=== PATIENT | female | born 1960 | race Caucasian/White ===

== ENCOUNTER → 2017-01-24 | Day surgery (SDC) | payer OTHER ==
[~2017-01-24] MED LIST: BACITRACIN IM FOR SOLN 50,000 UNIT VIAL ONE; BUPIVACAINE/EPINEPHRINE 0.25% PF 10 ML VIAL ONE; LACTATED RINGER'S 1000 ML INJ 1,000 ML ONE; LEVO75TA3 PO; MIDAZOLAM HCL 5 MG/ML VIAL (1 ML) ONE; ONDANSETRON HCL 4 MG/2 ML VIAL IV PUSH ONE; PROPOFOL 200 MG/20 ML AMP IV ONE; PROT40TA PO; SODIUM CHLORIDE 0.9% INJ 10 ML ONE; ceFAZolin INJ 1,000 MG VIAL ONE
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
== END | disposition home or self-care (01) ==
LOC: ESDC 06:48
PROVIDERS: ATTEND Orthopaedic Surgery Sports Medicine
DX: M75.121 Complete rotator cuff tear or rupture of right shoulder, not specified as traumatic (principal); M19.011 Primary osteoarthritis, right shoulder
CPT/HCPCS: 00450; 01630; 01991; 23120; 23420; 64417; C1713; J0690; J2250; J2405; J7120

== ENCOUNTER → 2017-07-06 | Outpatient (CLI) | payer OTHER ==
[~2017-07-06] MED LIST changes: -BACITRACIN IM FOR SOLN 50,000 UNIT VIAL ONE; -BUPIVACAINE/EPINEPHRINE 0.25% PF 10 ML VIAL ONE; -LACTATED RINGER'S 1000 ML INJ 1,000 ML ONE; -MIDAZOLAM HCL 5 MG/ML VIAL (1 ML) ONE; -ONDANSETRON HCL 4 MG/2 ML VIAL IV PUSH ONE; -PROPOFOL 200 MG/20 ML AMP IV ONE; -SODIUM CHLORIDE 0.9% INJ 10 ML ONE; -ceFAZolin INJ 1,000 MG VIAL ONE
[2017-07-06 09:34] LABS: AUTOMATED NEUTROPHIL # 2.9 TH/MM3 (1.8-7.7); BASOPHIL # 0.1 TH/MM3 (0-0.2); BASOPHIL % 0.8 % (0.0-2.0); EOSINOPHIL # 0.1 TH/MM3 (0-0.4); EOSINOPHIL % 2.2 % (0.0-4.0); HEMATOCRIT 41.4 % (35.0-46.0); HEMO FLAGS DIFF FINAL; LYMPH % 45.7 % (9.0-44.0); MEAN CELL VOLUME 90.1 FL (80.0-100.0); MEAN CORPUSCULAR HEMOGLOBIN 30.3 PG (27.0-34.0); MEAN CORPUSCULAR HGB CONC 33.6 % (32.0-36.0); MONO % 7.1 % (0.0-8.0); NEUT % 44.2 % (16.0-70.0); PLATELET COUNT 242 TH/MM3 (150-450); WHITE BLOOD COUNT 6.6 TH/MM3 (4.0-11.0)
[2017-07-06 09:47] LABS: BLOOD, URINE NEG (NEG); GLUCOSE,URINE NEG (NEG); KETONE, URINE NEG (NEG); MUCUS URINE FEW /lpf (OCC); NITRITE,URINE NEG (NEG); PH, URINE 5.5 (5.0-8.5); SQUAMOUS EPITHELIAL CELL URINE 7 /hpf (0-5); URINE COLOR YELLOW (YELLW/STRAW)
[2017-07-06 10:18] LABS: ANION GAP 9 MEQ/L (5-15); AST (GOT) 29 U/L (15-37); BICARBONATE 25.1 MEQ/L (21.0-32.0); BLOOD UREA NITROGEN 16 MG/DL (7-18); CHLORIDE 108 MEQ/L (98-107); GLOMERULAR FILTRATION RATE 61 ML/MIN (>89); GLUCOSE,FASTING 103 MG/DL (74-99); POTASSIUM 4.1 MEQ/L (3.5-5.1); SODIUM (NA) 142 MEQ/L (136-145)
[2017-07-06 10:29] LABS: ALKALINE PHOSPHATASE 73 U/L (45-117); ALT (GPT) 38 U/L (10-53); TOTAL BILIRUBIN ADULT 0.4 MG/DL (0.2-1.0)
== END ==
LOC: CLAB 08:53
PROVIDERS: ATTEND Family Medicine
DX: Z00.00 Encounter for general adult medical examination without abnormal findings (principal)
CPT/HCPCS: 36415; 80053; 81001; 84443; 85025

== ENCOUNTER → 2017-09-29 | Outpatient (CLI) | payer OTHER ==
[2017-09-29 12:33] LABS: AUTOMATED NEUTROPHIL # 3.7 TH/MM3 (1.8-7.7); BASOPHIL % 0.5 % (0.0-2.0); EOSINOPHIL # 0.1 TH/MM3 (0-0.4); EOSINOPHIL % 1.8 % (0.0-4.0); HEMATOCRIT 44.3 % (35.0-46.0); HEMOGLOBIN 14.9 GM/DL (11.6-15.3); LYMPHOCYTE # 3.3 TH/MM3 (1.0-4.8); MEAN CELL VOLUME 89.7 FL (80.0-100.0); MEAN CORPUSCULAR HEMOGLOBIN 30.1 PG (27.0-34.0); MEAN CORPUSCULAR HGB CONC 33.6 % (32.0-36.0); MEAN PLATELET VOLUME 7.3 FL (7.0-11.0); MONO % 6.6 % (0.0-8.0); MONOCYTE # 0.5 TH/MM3 (0-0.9); NEUT % 48.1 % (16.0-70.0); PLATELET COUNT 287 TH/MM3 (150-450); RED BLOOD COUNT 4.94 MIL/MM3 (4.00-5.30); RED CELL DISTRIBUTION WIDTH 13.6 % (11.6-17.2); WHITE BLOOD COUNT 7.7 TH/MM3 (4.0-11.0)
[2017-09-29 12:37] LABS: BACTERIA, URINE OCC /hpf; BILIRUBIN, URINE NEG (NEG); BLOOD, URINE NEG (NEG); GLUCOSE,URINE NEG (NEG); HYALINE CAST, URINE 1 /lpf (RARE); KETONE, URINE NEG (NEG); MUCUS URINE MOD /lpf (OCC); NITRITE,URINE NEG (NEG); PH, URINE 5.5 (5.0-8.5); SQUAMOUS EPITHELIAL CELL URINE 3 /hpf (0-5); URINE COLOR YELLOW (YELLW/STRAW); URINE LEUKOCYTE ESTERASE NEG (NEG)
[2017-09-29 12:59] LABS: ALBUMIN 3.8 GM/DL (3.4-5.0); AST (GOT) 42 U/L (15-37); BICARBONATE 26.3 MEQ/L (21.0-32.0); BLOOD UREA NITROGEN 13 MG/DL (7-18); CALCIUM 8.9 MG/DL (8.5-10.1); CHLORIDE 105 MEQ/L (98-107); CREATININE 0.89 MG/DL (0.50-1.00); GLOMERULAR FILTRATION RATE 65 ML/MIN (>89); GLUCOSE,FASTING 100 MG/DL (74-99); SODIUM (NA) 140 MEQ/L (136-145)
[2017-09-29 13:01] LABS: ALT (GPT) 45 U/L (10-53); CHOLESTEROL 200 MG/DL (120-200)
[2017-09-29 13:11] LABS: ALKALINE PHOSPHATASE 83 U/L (45-117); CHOLESTEROL/ HDL RATIO 4.55 RATIO; HDL CHOLESTEROL 43.9 MG/DL (40.0-60.0); LDL CHOLESTEROL 134 MG/DL (0-99); TOTAL BILIRUBIN ADULT 0.6 MG/DL (0.2-1.0); TOTAL PROTEIN 7.7 GM/DL (6.4-8.2); TRIGLYCERIDES 111 MG/DL (42-150)
== END ==
LOC: CLAB 12:02
PROVIDERS: ATTEND Family Medicine
DX: K21.9 Gastro-esophageal reflux disease without esophagitis (principal); Z12.11 Encounter for screening for malignant neoplasm of colon
CPT/HCPCS: 36415; 80053; 80061; 81001; 84443; 85025

== ENCOUNTER 2018-04-12 14:28 | Inpatient (IN) ==
[2018-04-12] MEDS ORDERED: Temazepam 15 MG Capsule PO PRN (22:35)
[2018-04-12] MEDS: Sod Chloride 0.9% Inj 1,000 ML IV.CONT SCH (23:05)
[2018-04-13] MEDS: Morphine Inj 4 MG/ML Vial IV.PUSH PRN ×2 (02:35→10:42)
[2018-04-13 06:39] LABS: Potassium 3.8 meq/L (3.5-5.1)
[2018-04-13 06:41] LABS: Baso # (Auto) 0.3 th/mm3 (0.0-0.2); Baso % (Auto) 2.2 % (0.0-2.0); Eos # (Auto) 0.3 th/mm3 (0.0-0.4); Eos % (Auto) 1.8 % (0.0-4.0); Hematocrit 41.1 % (35.0-46.0); Hemoglobin 14.1 gm/dL (11.6-15.3); Lymph # (Auto) 2.8 th/mm3 (1.0-4.8); Lymph % (Auto) 20.3 % (9.0-44.0); Mean Corpuscular HGB Conc 34.2 % (32.0-36.0); Mean Corpuscular Hemoglobin 30.7 pg (27.0-34.0); Mean Corpuscular Volume 89.6 fL (80.0-100.0); Mean Platelet Volume 8.5 fL (7.0-11.0); Mono # (Auto) 0.7 th/mm3 (0.0-0.9); Mono % (Auto) 5.2 % (0.0-8.0); Neut # (Auto) 9.8 th/mm3 (1.8-7.7); Neut % (Auto) 70.5 % (16.0-70.0); Platelet Count 235 th/mm3 (150-450); Red Blood Count 4.58 mil/mm3 (4.00-5.30); Red Cell Distribution Width 13.7 % (11.6-17.2); White Blood Count 13.9 th/mm3 (4.0-11.0)
[2018-04-13 06:42] LABS: Carbon Dioxide 25.8 meq/L (21.0-32.0)
[2018-04-13] MEDS: Sod Chloride 0.9% Inj 1,000 ML IV.CONT SCH ×5 (07:05→22:39)
--- NOTE | 2018-04-13 09:22 | P.HP ---
History of Present Illness Primary Care Physician: Abel Avila MD History of Present Illness: 57-year-old female with history of hypothyroid, GERD, diverticulitis presents with pancreatitis and associated abdominal pain. This all began 25 days ago when she developed a nonproductive cough. Since that time she has been on a collection of medications including 1 week of azithromycin, 2 weeks of ciprofloxacin, steroid taper, codeine, Sudafed, essential oils. 3 days ago she developed abdominal pain and loss of appetite. The abdominal pain became worse over the last 3 days and yesterday she came to the ER for pain relief. CT confirmed pancreatitis, supported by labs. No evidence of obstruction. Inpatient Certification: I certify that the inpatient services were ordered in accordance with Medicare regulations governing the order. This includes certification that hospital inpatient services are reasonable and necessary and in the case of services not specified as inpatient-only under 42 CFR 419.22(n), that they are appropriately provided as inpatient services in accordance to with the 2-midnight benchmark under 43 CFR 412.3(e) Estimated Total Length of Stay (Days): 2 Plans for Post Hospital Care: Home Review of Systems Constitutional: Reports anorexia, Reports chills, Reports headache(s), Reports lack of energy, Reports weight loss, Denies body ache(s), Denies excessive sweating, Denies weakness, Denies weight gain Eyes: Denies blind spots, Denies blurry vision, Denies bulging eyes, Denies change in vision, Denies double vision, Denies discharge, Denies dry eyes, Denies floaters, Denies irritation, Denies itchy eyes, Denies loss of vision, Denies pain, Denies requires corrective lenses, Denies sensitivity to light, Denies other Ears, Nose, Mouth, and Throat: Reports change in voice, Reports hoarseness, Denies abnormal hearing, Denies bad breath, Denies dental pain, Denies ear pain , Denies facial pain, Denies nasal congestion Cardiovascular: Denies chest pain, Denies chest pain at rest, Denies chest pain with activity, Denies excessive sweating, Denies fainting, Denies fast heart rate, Denies foot swelling, Denies generalized swelling, Denies irregular heart rhythm, Denies leg pain with activity, Denies leg sores, Denies leg swelling, Denies lightheadedness, Denies radiating jaw, neck or arm pain, Denies rapid, pounding, or irregular heartbeat, Denies shortness of breath, Denies shortness of breath with activity, Denies shortness of breath when lying down, Denies shortness of breath causing sudden awakening, Denies slow heart rate, Denies other Respiratory: Reports cough, Denies chest congestion, Denies excessive phlegm production, Denies pain on inspiration, Denies pain with cough, Denies shortness of breath, Denies shortness of breath with activity Gastrointestinal: Reports abdominal pain, Reports bloating, Denies black, tarry stools, Denies bright, red blood in stools, Denies change in stools, Denies difficulty swallowing, Denies heartburn, Denies incontinent of stools, Denies loose stools, Denies nausea, Denies vomiting Genitourinary: Denies blood in urine, Denies difficulty starting urination, Denies frequent nighttime urination, Denies pelvic pain Musculoskeletal: Denies abnormal walking, Denies back pain, Denies body aches, Denies decreased muscle mass, Denies deformity, Denies joint pain, Denies joint swelling, Denies limited joint movement, Denies loss of height, Denies muscle cramps, Denies muscle weakness, Denies neck pain, Denies numbness, Denies radiating pain into limb, Denies stiffness, Denies tingling, Denies other Skin/Breast: Denies acne, Denies bleeding lesions, Denies boil, Denies breast swelling, Denies breast skin changes, Denies breast pain, Denies breast lump, Denies change in breast shape, Denies change in hair, Denies change in skin color, Denies changing lesions, Denies dry skin, Denies excessive hair growth, Denies hair loss, Denies itching, Denies lesions, Denies nail changes, Denies new lesions, Denies nipple discharge, Denies non-healing lesions, Denies redness , Denies sensitivity to light, Denies rash, Denies skin pain, Denies skin ulcer , Denies sores, Denies stretch cuevas, Denies unusual bruising, Denies wounds, Denies yellowing of the skin, Denies other Neurologic: Denies abnormal hearing, Denies abnormal movements, Denies abnormal speech, Denies abnormal walking, Denies behavioral changes, Denies burning sensations, Denies confusion, Denies dizziness, Denies fainting, Denies frequent falls, Denies headache(s), Denies lack of coordination, Denies localized weakness, Denies loss of vision, Denies memory loss, Denies numbness, Denies other visual disturbances, Denies radiating pain, Denies restless legs, Denies convulsions, Denies seizure-like activity, Denies sensory deficit, Denies tingling, Denies tingling/numbness/burning sensations, Denies tremor(s), Denies unsteadiness, Denies weakness, Denies other Psychiatric: Denies abnormal sleep pattern, Denies anxiety, Denies behavioral changes, Denies change in appetite, Denies change in sex drive, Denies confusion , Denies depression, Denies difficulty concentrating, Denies hearing things others do not hear, Denies hopelessness, Denies irritability, Denies lack of enjoyment, Denies memory loss, Denies mood swings, Denies panic attacks, Denies paranoia, Denies seeing things others do not see, Denies sensing things others do not sense, Denies tactile hallucinations, Denies thoughts of hurting/killing others, Denies thoughts of hurting/killing yourself, Denies other Endocrine: Denies cold intolerance, Denies excessive sweating, Denies flushing, Denies heat intolerance, Denies increased hunger, Denies increased thirst, Denies increased urination, Denies rapid, pounding, or irregular heartbeat, Denies other PMFSH - History History Provided By: Patient - Medical History Medical History: Medical History (Last Updated 04/12/18 @ 14:38 by Jennifer Watkins RN) Diverticulitis GERD (gastroesophageal reflux disease) H/O: hysterectomy Hypothyroid - Surgical History Surgical History: Surgical History (Last Updated 04/12/18 @ 16:40 by Shanika Gold RN) H/O shoulder surgery History of bowel resection Hx of appendectomy Hx of cholecystectomy - Family History Family History: Family History (Last Updated 04/13/18 @ 09:18 by Chava Perez MD) Other Family history of hypertension - Tobacco History Second Hand Smoke Exposure: No Smoking Status: Never smoker - Alcohol History How Often Do You Have a Drink Containing Alcohol: Never - Substance Use History Substance History: No History of Abuse Medications and Allergies Active Medications: Active Medications Sodium Chloride (Ns Inj) 1,000 mls @ 125 mls/hr IV.CONT .Q8H LEE Last Admin: 04/12/18 23:05 Dose: 125 mls/hr Morphine Sulfate (Morphine Inj) 2 mg IV.PUSH Q3H PRN PRN Reason: ABDOMINAL PAIN Last Admin: 04/13/18 02:35 Dose: 2 mg Ondansetron HCl (Zofran Inj) 4 mg IV.PUSH Q6H PRN PRN Reason: NAUSEA OR VOMITING Temazepam (Restoril) 15 mg PO HS PRN PRN Reason: INSOMNIA Allergies Allergy/AdvReac Type Severity Reaction Status Date / Time No Known Allergies Allergy Unverified 04/12/18 14:30 Home Medications Medication Instructions Recorded Confirmed Type levothyroxine 25 mcg PO DAILY 04/12/18 04/12/18 History prednisone 10 PO 04/12/18 04/12/18 History Exam Vital signs: Vital Signs 04/12/18 21:24 04/13/18 00:00 04/13/18 04:00 Temperature 97.7 F 98.1 F Pulse Rate 92 H 81 Respiratory Rate 20 20 16 Blood Pressure 139/71 130/60 Pulse Oximetry 96 96 04/13/18 08:00 Temperature 97.2 F L Pulse Rate 83 Respiratory Rate 19 Blood Pressure 122/62 Pulse Oximetry 93 L Intake & Output 04/12/18 04/13/18 04/13/18 18:59 06:59 18:59 Intake Total 0 / 0 Balance 0 / 0 Weight 111 kg Intake: Oral 0 / 0 Other: # Voids 1 Weight On Admission 111 kg Results - Labs CBC & Chem 7: 04/13/18 05:30 04/13/18 05:30 Labs: Laboratory Results - last 24 hr 04/12/18 04/13/18 04/13/18 21:25 05:30 05:30 CBC w Diff Auto diff final WBC 13.9 H RBC 4.58 Hgb 14.1 Hct 41.1 MCV 89.6 MCH 30.7 MCHC 34.2 RDW 13.7 Plt Count 235 MPV 8.5 Neut % (Auto) 70.5 H Lymph % (Auto) 20.3 [facility] % (Auto) 5.2 Eos % (Auto) 1.8 Baso % (Auto) 2.2 H Neut # (Auto) 9.8 H Lymph # (Auto) 2.8 [facility] # (Auto) 0.7 Eos # (Auto) 0.3 Baso # (Auto) 0.3 H WBC Differential . Differential Comment . Sodium 138 Potassium 3.8 Chloride 106 Carbon Dioxide 25.8 Anion Gap 6 BUN 16 Creatinine 0.86 Estimated GFR 68 L POC Glucose 100 Random Glucose 100 Calcium 8.0 L D Lipase 677 H Caprini VTE Risk Assessment Caprini VTE Risk Assessment: Moderate/High Risk (score >= 2) Caprini Risk Assessment Model: Point Value = 1 Point Value = 2 Point Value = 3 Point Value = 5 Age 41-60 Minor surgery BMI > 25 kg/m2 Swollen legs Varicose veins or History of unexplained or recurrent spontaneous Oral contraceptives or hormone replacement Sepsis (< 1 month) Serious lung disease, including pneumonia (< 1 month) Abnormal pulmonary function Acute myocardial infarction Congestive heart failure (< 1 month) History of inflammatory bowel disease Medical patient at bed rest Age 61-74 Arthroscopic surgery Major open surgery (> 45 min) Laparoscopic surgery (> 45 min) Malignancy Confined to bed (> 72 hours) Immobilizing plaster cast Central venous access Age >= 75 History of VTE Family history of VTE Factor V Leiden Prothrombin [id number] Lupus anticoagulant Anticardiolipin antibodies Elevated serum homocysteine Heparin-induced thrombocytopenia Other congenital or acquired thrombophilia Stroke (< 1 month) Elective arthroplasty Hip, pelvis, or leg fracture Acute spinal cord injury (< 1 month) Prophylaxis Regimen: Total Risk Factor Score Risk Level Prophylaxis Regimen 0-1 Low Early ambulation 2 Moderate Order ONE of the following: *Sequential Compression Device (SCD) *Heparin 5000 units SQ BID 3-4 Higher Order ONE of the following medications: *Heparin 5000 units SQ TID *Enoxaparin/Lovenox 40 mg SQ daily (WT < 150 kg, CrCl > 30 mL/min) *Enoxaparin/Lovenox 30 mg SQ daily (WT < 150 kg, CrCl > 10-29 mL/min) *Enoxaparin/Lovenox 30 mg SQ BID (WT < 150 kg, CrCl > 30 mL/min) AND/OR *Sequential Compression Device (SCD) 5 or more Highest Order ONE of the following medications: *Heparin 5000 units SQ TID (Preferred with Epidurals) *Enoxaparin/Lovenox 40 mg SQ daily (WT < 150 kg, CrCl > 30 mL/min) *Enoxaparin/Lovenox 30 mg SQ daily (WT < 150 kg, CrCl > 10-29 mL/min) *Enoxaparin/Lovenox 30 mg SQ BID (WT < 150 kg, CrCl > 30 mL/min) AND *Sequential Compression Device (SCD) Assessment and Plan - Plan Pancreatitis Onset is likely a side effect of multiple medications stacked for too long to treat her upper respiratory infection Generous IV fluids, simple diet (clears) Monitor clinically, follow lipase Continue morphine for pain management Upper respiratory infection, cough Failed to respond to azithromycin and ciprofloxacin Steroids failed to improve After 25 days, this is likely not viral Start Rocephin for broad-spectrum coverage Tessalon Perles as needed for cough h/o Hypothyroidism Continue Synthroid h/o GERD Continue PPI DVT prophylaxis SCD hose, avoiding chemical prophylaxis due to risk of bleeding with pancreatitis
[2018-04-13] MEDS ORDERED: Morphine Inj 4 MG/ML Vial IV.PUSH PRN (15:23)
[2018-04-13 15:40] LABS: Bilirubin,Urine Negative (Negative); Clarity,Urine Slightly Cloudy (Clear); Color,Urine Yellow (Yellw/Straw); Glucose,Urine (UA) Negative (Negative); Leukocyte Esterase,Urine Negative (Negative); Nitrite,Urine Negative (Negative); PH,Urine 5.5 (5.0-8.5); Urobilinogen,Urine 0.2 mg/dL (Less than 2)
[2018-04-13 15:46] LABS: Bacteria,Urine Few /hpf; RBC,Urine 0-3 /hpf (0-3); Squamous Epithelial Cell,Urine Greater than 10 /hpf (0-5)
[2018-04-13] MEDS: Benzonatate 100 MG Capsule PO PRN (16:39)
[2018-04-13] MEDS: Pantoprazole Sodium 20 MG DR Tablet PO SCH (18:30)
[2018-04-14] MEDS: Levothyroxine 75 MCG Tablet PO SCH (05:53)
[2018-04-14 06:30] LABS: Hematocrit 40.5 % (35.0-46.0); Hemoglobin 13.8 gm/dL (11.6-15.3); Mean Corpuscular Hemoglobin 31.5 pg (27.0-34.0); Mean Corpuscular Volume 92.6 fL (80.0-100.0); Mean Platelet Volume 7.7 fL (7.0-11.0); Platelet Count 195 th/mm3 (150-450); Red Blood Count 4.37 mil/mm3 (4.00-5.30); Red Cell Distribution Width 13.4 % (11.6-17.2); White Blood Count 10.5 th/mm3 (4.0-11.0)
[2018-04-14 06:40] LABS: Calcium 8.1 mg/dL (8.5-10.1)
[2018-04-14 06:41] LABS: Carbon Dioxide 26.4 meq/L (21.0-32.0)
[2018-04-14] MEDS: Pantoprazole Sodium 20 MG DR Tablet PO SCH (08:57)
[2018-04-14] MEDS: Benzonatate 100 MG Capsule PO PRN ×2 (09:04→20:34)
[2018-04-14] MEDS ORDERED: Artificial Tears Opth Drops 15 ML Bottle EACH EYE PRN (09:41)
--- NOTE | 2018-04-14 10:40 | P.PN ---
Subjective Interval history: Patient states she is having less pain today, denies nausea or vomiting. Her pain is now limited to the left side of her abdomen and reduced in severity. She has been able to tolerate small amounts of clear liquids. Physical Exam Vital signs: Vital Signs 04/13/18 10:44 04/13/18 12:00 04/13/18 16:00 Temperature 97.4 F L 97.4 F L Pulse Rate 93 H 85 Respiratory Rate 18 19 17 Blood Pressure 131/67 131/67 Pulse Oximetry 97 96 04/13/18 17:08 04/13/18 20:18 04/14/18 00:00 Temperature 96.4 F L 97.2 F L Pulse Rate 84 79 Respiratory Rate 18 20 20 Blood Pressure 140/67 117/55 L Pulse Oximetry 96 96 04/14/18 07:23 Temperature 97.9 F Pulse Rate 79 Respiratory Rate 20 Blood Pressure 127/69 Pulse Oximetry 97 Intake & Output 04/13/18 04/14/18 04/14/18 18:59 06:59 18:59 Intake Total 1800 / 1800 2420 / 2420 Balance 1800 / 1800 2420 / 2420 Weight 112.9 kg Intake: IV 1600 / 1600 1999 / 1999 NS Inj 1,000 ML @ 100 mls/hr IV 1500 / 1500 1999 / 1999 .CONT .Q10H LEE Rx#:[id number] Rocephin Inj 1,000 MG In NS Inj 100 / 100 100 ML @ 200 mls/hr IV.SIG Q24H LEE Rx#:[id number] Oral 200 / 200 420 / 420 Other: # Voids 3 Narrative: GENERAL: Alert and oriented 3, no acute distress, well-nourished SKIN: Warm and dry. HEAD: Normocephalic. EYES: No scleral icterus. No injection or drainage. NECK: Supple, trachea midline. No JVD or lymphadenopathy. CARDIOVASCULAR: Regular rate and rhythm without murmurs, gallops, or rubs. RESPIRATORY: Breath sounds equal bilaterally. No accessory muscle use. GASTROINTESTINAL: Abdomen soft, mild diffuse left sided tenderness without any rebound or guarding, nondistended. MUSCULOSKELETAL: No cyanosis, or edema. BACK: Nontender without obvious deformity. No CVA tenderness. Results - Labs CBC & Chem 7: 04/14/18 05:57 04/14/18 05:57 Laboratory Results - last 24 hr 04/13/18 04/14/18 04/14/18 15:15 05:57 05:57 WBC 10.5 RBC 4.37 Hgb 13.8 Hct 40.5 MCV 92.6 MCH 31.5 MCHC 34.0 RDW 13.4 Plt Count 195 MPV 7.7 Sodium 142 Potassium 4.0 Chloride 111 H Carbon Dioxide 26.4 Anion Gap 5 BUN 9 Creatinine 0.84 Estimated GFR 70 L Random Glucose 106 Calcium 8.1 L Lipase 403 H Urine Color Yellow Urine Clarity Slightly cloudy Urine pH 5.5 Ur Specific [place] 1.010 Urine Protein Negative Urine Glucose (UA) Negative Urine Ketones 15 H Urine Occult Blood Negative Urine Nitrate Negative Urine Bilirubin Negative Urine Urobilinogen 0.2 Ur Leukocyte Esterase Negative Urine RBC 0-3 Urine WBC 5-8 H Ur Squamous Epith Cells Greater than 10 H Urine Bacteria Few H Micro UA Comment Culture not ind Urine Culture Comments Culture not ind Assessment and Plan - Plan Pancreatitis Onset is likely a side effect of multiple medications stacked for too long to treat her upper respiratory infection Continue generous IV fluids Continue clear liquid diet Continue to monitor clinically, follow lipase Continue morphine for pain management No advancement of diet today, she lacks hunger, clear liquids causes mild bloating Upper respiratory infection, cough 25 day infection failed to respond to azithromycin, ciprofloxacin, and steroids Continue Rocephin Continue Tessalon Perles h/o Hypothyroidism Continue Synthroid h/o GERD Continue PPI DVT prophylaxis SCD hose, avoiding chemical prophylaxis due to risk of bleeding with pancreatitis
[2018-04-14] MEDS: Sod Chloride 0.9% Inj 1,000 ML IV.CONT SCH ×3 (13:49→23:29)
[2018-04-15] MEDS: Sod Chloride 0.9% Inj 1,000 ML IV.CONT SCH ×2 (03:41→15:38)
[2018-04-15] MEDS: Levothyroxine 75 MCG Tablet PO SCH (05:05)
[2018-04-15] MEDS: Pantoprazole Sodium 20 MG DR Tablet PO SCH (09:35)
[2018-04-15] MEDS: Benzonatate 100 MG Capsule PO PRN ×2 (09:36→19:53)
--- NOTE | 2018-04-15 12:07 | P.PN ---
Subjective Interval history: Patient states that her abdominal pain is 2 out of 10. She denies nausea or vomiting. She is tolerating her diet okay but still has some bloating with each ingestion of clear broth or Jell-O. Physical Exam Vital signs: Vital Signs 04/14/18 15:04 04/14/18 20:00 04/15/18 00:00 Temperature 97.1 F L 96.5 F L 97.4 F L Pulse Rate 73 73 73 Respiratory Rate 20 20 20 Blood Pressure 129/61 153/91 H 139/75 Pulse Oximetry 99 99 97 04/15/18 07:25 04/15/18 11:05 Temperature 97 F L 97.3 F L Pulse Rate 77 69 Respiratory Rate 20 20 Blood Pressure 121/66 135/70 Pulse Oximetry 97 97 Intake & Output 04/14/18 04/15/18 04/15/18 18:59 06:59 18:59 Intake Total 2500 / 2500 1160 / 1160 1100 / 1100 Balance 2500 / 2500 1160 / 1160 1100 / 1100 Weight 110.5 kg Intake: IV 1000 / 1000 1100 / 1100 1100 / 1100 NS Inj 1,000 ML @ 100 mls/hr IV 1000 / 1000 1000 / 1000 1000 / 1000 .CONT .Q10H LEE Rx#:[id number] Rocephin Inj 1,000 MG In NS Inj 100 / 100 100 / 100 100 ML @ 200 mls/hr IV.SIG Q24H LEE Rx#:[id number] Oral 1500 / 1500 60 / 60 Other: # Voids 5 4 # Bowel Movements 1 Narrative: GENERAL: Alert and oriented 3, no acute distress, well-nourished SKIN: Warm and dry. HEAD: Normocephalic. EYES: No scleral icterus. No injection or drainage. NECK: Supple, trachea midline. No JVD or lymphadenopathy. CARDIOVASCULAR: Regular rate and rhythm without murmurs, gallops, or rubs. RESPIRATORY: Breath sounds equal bilaterally. No accessory muscle use. GASTROINTESTINAL: Abdomen soft, mild diffuse left sided tenderness without any rebound or guarding, nondistended. MUSCULOSKELETAL: No cyanosis, or edema. BACK: Nontender without obvious deformity. No CVA tenderness. Results - Labs CBC & Chem 7: 04/14/18 05:57 04/14/18 05:57 Assessment and Plan - Plan Pancreatitis Onset is likely a side effect of multiple medications stacked for too long to treat her upper respiratory infection Reduce IV fluids to 50 mL/h Advance diet to soft Follow lipase level in the a.m. If tolerating solid foods without nausea or vomiting patient may be discharged tomorrow Upper respiratory infection, cough 25 day infection failed to respond to azithromycin, ciprofloxacin, and steroids Continue Rocephin while hospitalized Continue Tessalon Maria R Added Flonase for possible allergy causes h/o Hypothyroidism Continue Synthroid h/o GERD Continue PPI DVT prophylaxis SCD hose, avoiding chemical prophylaxis due to risk of bleeding with pancreatitis
[2018-04-16] MEDS: Levothyroxine 75 MCG Tablet PO SCH (05:25)
[2018-04-16 06:40] LABS: Hematocrit 42.8 % (35.0-46.0); Hemoglobin 14.2 gm/dL (11.6-15.3); Mean Corpuscular HGB Conc 33.1 % (32.0-36.0); Mean Corpuscular Hemoglobin 30.6 pg (27.0-34.0); Mean Corpuscular Volume 92.3 fL (80.0-100.0); Mean Platelet Volume 8.3 fL (7.0-11.0); Platelet Count 223 th/mm3 (150-450); Red Blood Count 4.64 mil/mm3 (4.00-5.30); Red Cell Distribution Width 12.9 % (11.6-17.2); White Blood Count 7.9 th/mm3 (4.0-11.0)
[2018-04-16 06:50] LABS: Calcium 8.7 mg/dL (8.5-10.1)
[2018-04-16] MEDS: Pantoprazole Sodium 20 MG DR Tablet PO SCH (10:03)
[2018-04-16] MEDS: Sod Chloride 0.9% Inj 1,000 ML IV.CONT SCH (11:38)
--- NOTE | 2018-04-16 11:38 | P.DS ---
Date of admission: 04/12/18 20:57 Primary care physician: Abel Avila MD Brief History from admission: 57-year-old female with history of hypothyroid, GERD, diverticulitis presents with pancreatitis and associated abdominal pain. This all began 25 days ago when she developed a nonproductive cough. Since that time she has been on a collection of medications including 1 week of azithromycin, 2 weeks of ciprofloxacin, steroid taper, codeine, Sudafed, essential oils. 3 days ago she developed abdominal pain and loss of appetite. The abdominal pain became worse over the last 3 days and yesterday she came to the ER for pain relief. CT confirmed pancreatitis, supported by labs. No evidence of obstruction. DS: Medications - Discharge Medications Prescriptions: benzonatate [Tessalon Perles] 100 mg PO Q8H PRN 5 Days #15 cap PRN Reason: Cough clotrimazole-betamethasone [Lotrisone] 1 applicatio TOPICAL BID 7 Days #1 g fluticasone 2 spray NASAL DAILY 30 Days #1 g hydrocodone-acetaminophen 1 tab PO Q6H PRN 3 Days #12 tab PRN Reason: Acute Pain DS: Summary Hospital Course: 57-year-old female with a history of hypothyroidism, GERD, diverticulitis. She presented to the ER 4 days ago and was with abdominal pain and was found to have pancreatitis. Onset of the pancreatitis was most likely due to 25 days of antibiotics combined with multiple [id number] treatments for upper respiratory infection and cough, including Sudafed Robitussin etc. She has responded well to simple course of IV fluids. 2 days ago she began to tolerate clear liquid diet and is advanced to soft foods, she ate a portion of her hamburger yesterday and will have a portion of her chicken breast today. She is stable to transition her recovery to home. She denies any nausea vomiting over the last 3 days and her pain is controlled, last Bowers dose was 2 days ago. She is recommended to follow-up with her primary care doctor. - Time Spent with Patient Total time spent providing and/or coordinating discharge services: Exam Vital signs: Vital Signs 04/15/18 15:10 04/15/18 20:00 04/16/18 00:00 Temperature 96.8 F L 97.1 F L 97.0 F L Pulse Rate 77 76 72 Respiratory Rate 20 16 16 Blood Pressure 134/61 142/66 H 136/61 Pulse Oximetry 98 92 L 94 L 04/16/18 08:00 Temperature 96.8 F L Pulse Rate 72 Respiratory Rate 20 Blood Pressure 146/76 H Pulse Oximetry 97 Intake & Output 04/15/18 04/16/18 04/16/18 18:59 06:59 18:59 Intake Total 1999 420 / 420 300 / 300 Balance 1999 420 / 420 300 / 300 Weight 110.5 kg Intake: IV 1100 / 1100 NS Inj 1,000 ML @ 100 mls/hr IV 1000 / 1000 .CONT .Q10H LEE Rx#:[id number] Rocephin Inj 1,000 MG In NS Inj 100 / 100 100 ML @ 200 mls/hr IV.SIG Q24H LEE Rx#:[id number] Oral 900 / 900 420 / 420 300 / 300 Other: # Voids 4 2 Date of Last Bowel Movement 04/15/18 # Bowel Movements 2 Results Procedures completed during hospitalization: None Labs on day of discharge: Labs from last 24 hours 04/16/18 04/16/18 05:30 05:30 WBC 7.9 RBC 4.64 Hgb 14.2 Hct 42.8 MCV 92.3 MCH 30.6 MCHC 33.1 RDW 12.9 Plt Count 223 MPV 8.3 Sodium 143 Potassium 4.0 Chloride 110 H Carbon Dioxide 26.0 Anion Gap 7 BUN 7 Creatinine 0.85 Estimated GFR 69 L Random Glucose 96 Calcium 8.7 Lipase 348 Discharge Plan - Discharge Disposition Patient Disposition: 01 Discharge Home - Discharge Condition Condition: Good - Discharge Order Discharge Orders: Discharge Order (Routine); Ordered 04/16/18 Ordered By: Chava Perez - Physicians Team Primary Care Provider: Abel Avila Attending Provider: Chava Perez - Rxs /Orders / Referrals /Forms Prescriptions: New benzonatate [Tessalon Perles] 100 mg Capsule 100 mg PO Q8H PRN (Reason: Cough) 5 Days Qty: 15 RF: 0 clotrimazole-betamethasone [Lotrisone] 1-0.05 % Cream 1 applicatio Topical BID 7 Days Qty: 1 RF: 0 fluticasone 50 mcg/actuation [place],Suspension 2 spray NASAL DAILY 30 Days Qty: 1 RF: 0 hydrocodone-acetaminophen 5-325 mg Tablet 1 tab PO Q6H PRN (Reason: Acute Pain) 3 Days Qty: 12 RF: 0 Continue levothyroxine 25 mcg Tablet 75 mcg PO DAILY omeprazole magnesium [Prilosec OTC] 20 mg Tablet,Delayed Release (Dr/Ec) 20 mg PO DAILY Discontinued prednisone 10 mg Tablet PO DAILY Referrals: Abel Avila MD [Primary Care Provider] - See Instructions Forms: Work Release/Restrictions
== END 2018-04-16 13:38 | disposition home or self-care (01) ==
LOC: PHEDDLT 20:56 → PH3 20:57
PROVIDERS: ADMIT Family Medicine; ATTEND Family Medicine

== ENCOUNTER 2018-06-24 10:16 | Inpatient (IN) ==
[2018-06-24] MEDS ORDERED: Vancomycin Consult Pharmacy OTHER PRN (14:32)
[2018-06-24] MEDS: Lactobacillus Acidophilus/L. Spores Tablet PO SCH (21:10)
[2018-06-24] MEDS ORDERED: Vancomycin Inj 1 GM/200 ML PIGGYBACK IV.SIG SCH (22:00)
[2018-06-25] MEDS: Vancomycin Inj 1,500 MG in Sodium Chlor 0.9% Inj 500 ML IV.SIG SCH ×2 (01:22→20:18)
[2018-06-25 06:43] LABS: Baso # (Auto) 0.3 th/mm3 (0.0-0.2); Baso % (Auto) 3.6 % (0.0-2.0); Eos # (Auto) 0.3 th/mm3 (0.0-0.4); Eos % (Auto) 4.4 % (0.0-4.0); Hematocrit 37.9 % (35.0-46.0); Hemoglobin 13.1 gm/dL (11.6-15.3); Lymph # (Auto) 2.5 th/mm3 (1.0-4.8); Lymph % (Auto) 34.7 % (9.0-44.0); Mean Corpuscular HGB Conc 34.5 % (32.0-36.0); Mean Corpuscular Hemoglobin 31.9 pg (27.0-34.0); Mean Corpuscular Volume 92.5 fL (80.0-100.0); Mean Platelet Volume 7.9 fL (7.0-11.0); Mono # (Auto) 0.5 th/mm3 (0.0-0.9); Mono % (Auto) 6.2 % (0.0-8.0); Neut # (Auto) 3.7 th/mm3 (1.8-7.7); Neut % (Auto) 51.1 % (16.0-70.0); Platelet Count 269 th/mm3 (150-450); Red Blood Count 4.09 mil/mm3 (4.00-5.30); Red Cell Distribution Width 12.7 % (11.6-17.2); White Blood Count 7.3 th/mm3 (4.0-11.0)
[2018-06-25 06:47] LABS: Chloride 107 meq/L (98-107); Potassium 3.7 meq/L (3.5-5.1); Sodium 140 meq/L (136-145)
[2018-06-25 06:50] LABS: Calcium 8.1 mg/dL (8.5-10.1)
[2018-06-25 06:51] LABS: Anion Gap 10 meq/L (5-15); Blood Urea Nitrogen 12 mg/dL (7-18); Carbon Dioxide 22.9 meq/L (21.0-32.0); Glucose,Random 116 mg/dL (74-106)
[2018-06-25 06:54] LABS: Alanine Aminotransferase 28 U/L (10-53); Aspartate Aminotransferase 23 U/L (15-37); Glomerular Filtration Rate 58 mL/min (>89)
[2018-06-25 06:57] LABS: Alkaline Phosphatase 74 U/L (45-117)
[2018-06-25] MEDS: Lactobacillus Acidophilus/L. Spores Tablet PO SCH ×3 (09:11→18:06)
--- NOTE | 2018-06-25 10:21 | P.HP ---
History of Present Illness Primary Care Physician: UNKNOWN Chief Complaint: Skin abscess History of Present Illness: 57-year-old female with known history of hypothyroidism, gastroesophageal reflux, diverticulitis who presented to the hospital for evaluation of erythema and wound of her abdomen. Patient states that 2 weeks ago she had noticed that she may have had a insect bite or what appears to look like a ant bite on her abdomen. He did not think much of it and then progressively got worse. She went to her prior medical doctor's office roughly 3 days ago and prescribed Bactrim. Patient took it for the 3 days and it did not improve so she went to the emergency department for evaluation. Patient had workup done and recommended admission for failed outpatient management of cellulitis. Patient denies any fever, chills. CT scan was done of the abdomen which did show some skin thickening and subcutaneous inflammatory change of the right anterior abdominal wall characteristic of cellulitis. There is no abscess or fluid collection present. - Diagnosis (1) Cellulitis Inpatient Certification: I certify that the inpatient services were ordered in accordance with Medicare regulations governing the order. This includes certification that hospital inpatient services are reasonable and necessary and in the case of services not specified as inpatient-only under 42 CFR 419.22(n), that they are appropriately provided as inpatient services in accordance to with the 2-midnight benchmark under 43 CFR 412.3(e) Estimated Total Length of Stay (Days): 3 Plans for Post Hospital Care: Home Review of Systems All other systems reviewed negative except as stated in HPI Skin/Breast: Reports change in skin color, Reports lesions PMFSH - History History Provided By: Patient - Medical History Medical History: Medical History (Last Reviewed 06/25/18 @ 10:17 by SUZANNE Rico) H/O: hysterectomy (Acute) Diverticulitis (Acute) Hypothyroid (Acute) GERD (gastroesophageal reflux disease) (Acute) - Surgical History Surgical History: Surgical History (Last Reviewed 06/25/18 @ 10:17 by SUZANNE Rico) Hx of appendectomy (Acute) History of bowel resection (Acute) H/O shoulder surgery (Acute) Hx of cholecystectomy (Acute) - Family History Family History: Family History (Last Updated 06/25/18 @ 10:18 by SUZANNE Rico) Father History of chronic obstructive pulmonary disease Other Family history of hypertension - Tobacco History Second Hand Smoke Exposure: No Tobacco Use In Past 30 Days: No Smoking Status: Never smoker - Alcohol History How Often Do You Have a Drink Containing Alcohol: Monthly or less - Substance Use History Substance History: No History of Abuse - Travel History Recent Travel in the [place] Within the Last 8 Weeks: No Recent Travel Out of the Country Within the Last 8 Weeks: No - Immunization History Tetanus Immunization: >5 Years Tetanus Immunization Year if Known: 2014 Hx Influenza Vaccine This Season: No Medications and Allergies Active Medications: Active Medications Hydrocodone Bitart/Acetaminophen ([place] 10/325) 1 tab PO Q4H PRN PRN Reason: Pain 7 to 10 Hydrocodone Bitart/Acetaminophen ([place] 5/325) 1 tab PO Q4H PRN PRN Reason: Pain 3 to 6 Al Hydroxide/Mg Hydroxide (Milk Of Magnesia Liq) 30 ml PO Q12H PRN PRN Reason: Mild Constipation Ceftriaxone Sodium 1,000 mg/ (Sodium Chloride) 100 mls @ 200 mls/hr IV.SIG Q24H LEE Vancomycin HCl 1,500 mg/ (Sodium Chloride) 515 mls @ 250 mls/hr IV.SIG Q18H LEE Last Infusion: 06/25/18 03:26 Dose: Infused Lactobacillus Acidophilus (Lactinex) 1 tab PO TID LEE Last Admin: 06/25/18 09:11 Dose: 1 tab Miscellaneous Information ([facility] Ordered Lab Info) 0 each OTHER ONCE ONE Stop: 06/26/18 13:46 Ondansetron HCl (Zofran Inj) 4 mg IV.PUSH Q6H PRN PRN Reason: NAUSEA OR VOMITING Pharmacy Profile Note (Vancomycin Consult Pharmacy) 1 each OTHER UNSCH PRN PRN Reason: Pharmacy to dose Allergies Allergy/AdvReac Type Severity Reaction Status Date / Time No Known Allergies Allergy Verified 05/31/18 09:26 Home Medications Medication Instructions Recorded Confirmed Type cyclobenzaprine 10 mg PO TID PRN 06/24/18 06/24/18 History escitalopram oxalate 10 mg PO DAILY 06/24/18 06/24/18 History levothyroxine 75 mcg PO DAILY 06/24/18 06/24/18 History pantoprazole 40 mg PO BID 06/24/18 06/24/18 History sulfamethoxazole-trimethoprim 1 tab PO BID 06/24/18 06/24/18 History [Bactrim DS] Exam Vital signs: Vital Signs 06/24/18 20:00 06/25/18 00:00 06/25/18 08:00 Temperature 99.0 F 98.3 F 97.9 F Pulse Rate 88 91 H 83 Respiratory Rate 16 16 20 Blood Pressure 128/70 123/58 L 123/58 L Pulse Oximetry 97 96 96 Intake & Output 06/24/18 06/25/18 06/25/18 18:59 06:59 18:59 Intake Total 755 / 755 240 / 240 Balance 755 / 755 240 / 240 Weight 111 kg 112.2 kg Intake: IV 515 / 515 Vancomycin Inj 1,500 MG In NS 515 / 515 Inj 500 ML @ 250 mls/hr IV.SIG Q18H LEE Rx#:[id number] Oral 240 / 240 240 / 240 Other: # Voids 2 Weight On Admission 112.4 kg Narrative: GENERAL: Well-developed, well-nourished, in no acute distress. alert and orientated HEENT: Head is normocephalic without any lesions or masses noted. Facial features are symmetric. Eyes: Pupils equal round reactive to light. Extraocular muscles are intact. Conjunctivae were clear. Oropharyngeal: Pharynx without any erythema edema. Tongue is midline without deviation. Buccal mucosa is moist without any masses or lesions NECK: Supple without any masses. Trachea midline no deviation. No JVD, no bruits are appreciated CARDIAC: Regular rhythm, regular rate. S1/S2 are heard. No murmurs gallops or rubs. LUNGS: Clear to auscultation bilaterally. No wheeze, rhonchi or rales. No use of accessory muscles on inspiration or expiration. ABDOMEN: Soft, nontender. Nondistended. Bowel sounds heard in all 4 quadrants. No organomegaly or masses. Negative rebound, negative guarding EXTREMITIES: No edema, pulses are equal bilaterally. No cyanosis or clubbing NEUROLOGY: Mood and affect appear appropriate. Cranial nerves II through XII grossly intact. Muscle strength 5/5 in upper and lower extremities bilaterally. Deep tendon reflexes are 2+ in upper and lower extremities bilaterally. SKIN: Patient does have a elliptical shaped erythematous area on her right mid abdomen measuring approximately 4 cm x 9 cm. Upon direct palpation peers to be a granulated area noted in the center of the erythema measuring approximately 2 x 4 cm. There does appear to be multiple openings in the very center with serosanguineous drainage. No purulence was able to be expressed. Area was marked and does not appear as if the cellulitis has extended beyond the marked area Results - Labs CBC & Chem 7: 06/25/18 06:03 06/25/18 06:03 Labs: Laboratory Results - last 24 hr 06/25/18 06/25/18 06:03 06:03 CBC w Diff Auto diff final WBC 7.3 RBC 4.09 Hgb 13.1 Hct 37.9 MCV 92.5 MCH 31.9 MCHC 34.5 RDW 12.7 Plt Count 269 MPV 7.9 Neut % (Auto) 51.1 Lymph % (Auto) 34.7 [place] % (Auto) 6.2 Eos % (Auto) 4.4 H Baso % (Auto) 3.6 H Neut # (Auto) 3.7 Lymph # (Auto) 2.5 [place] # (Auto) 0.5 Eos # (Auto) 0.3 Baso # (Auto) 0.3 H WBC Differential . Differential Comment . Sodium 140 Potassium 3.7 Chloride 107 Carbon Dioxide 22.9 Anion Gap 10 BUN 12 Creatinine 0.98 Estimated GFR 58 L Random Glucose 116 H Calcium 8.1 L D Total Bilirubin 0.4 AST 23 ALT 28 Alkaline Phosphatase 74 Total Protein 7.0 D Albumin 3.0 L Caprini VTE Risk Assessment Caprini VTE Risk Assessment: Moderate/High Risk (score >= 2) Caprini Risk Assessment Model: Point Value = 1 Point Value = 2 Point Value = 3 Point Value = 5 Age 41-60 Minor surgery BMI > 25 kg/m2 Swollen legs Varicose veins or History of unexplained or recurrent spontaneous Oral contraceptives or hormone replacement Sepsis (< 1 month) Serious lung disease, including pneumonia (< 1 month) Abnormal pulmonary function Acute myocardial infarction Congestive heart failure (< 1 month) History of inflammatory bowel disease Medical patient at bed rest Age 61-74 Arthroscopic surgery Major open surgery (> 45 min) Laparoscopic surgery (> 45 min) Malignancy Confined to bed (> 72 hours) Immobilizing plaster cast Central venous access Age >= 75 History of VTE Family history of VTE Factor V Leiden Prothrombin [id number] Lupus anticoagulant Anticardiolipin antibodies Elevated serum homocysteine Heparin-induced thrombocytopenia Other congenital or acquired thrombophilia Stroke (< 1 month) Elective arthroplasty Hip, pelvis, or leg fracture Acute spinal cord injury (< 1 month) Prophylaxis Regimen: Total Risk Factor Score Risk Level Prophylaxis Regimen 0-1 Low Early ambulation 2 Moderate Order ONE of the following: *Sequential Compression Device (SCD) *Heparin 5000 units SQ BID 3-4 Higher Order ONE of the following medications: *Heparin 5000 units SQ TID *Enoxaparin/Lovenox 40 mg SQ daily (WT < 150 kg, CrCl > 30 mL/min) *Enoxaparin/Lovenox 30 mg SQ daily (WT < 150 kg, CrCl > 10-29 mL/min) *Enoxaparin/Lovenox 30 mg SQ BID (WT < 150 kg, CrCl > 30 mL/min) AND/OR *Sequential Compression Device (SCD) 5 or more Highest Order ONE of the following medications: *Heparin 5000 units SQ TID (Preferred with Epidurals) *Enoxaparin/Lovenox 40 mg SQ daily (WT < 150 kg, CrCl > 30 mL/min) *Enoxaparin/Lovenox 30 mg SQ daily (WT < 150 kg, CrCl > 10-29 mL/min) *Enoxaparin/Lovenox 30 mg SQ BID (WT < 150 kg, CrCl > 30 mL/min) AND *Sequential Compression Device (SCD) Assessment and Plan - Assessment (1) Cellulitis Code(s): L03.90 - Status: Acute - Plan Abdominal wall cellulitis, failing outpatient management -Patient did take 3 days worth of Bactrim without any significant improvement -Patient continued on Rocephin and vancomycin with pharmacy consult -[place] as needed for pain control -Continue monitor culture for appropriate antibiotics Hypothyroidism -Continue home medications DVT prevention -Sequential compression devices
[2018-06-25] MEDS: Levothyroxine 75 MCG Tablet PO SCH (11:50)
[2018-06-25] MEDS: Escitalopram 10 MG Tablet PO SCH (11:50)
[2018-06-26 01:58] VITALS: PULSE 89; O2SAT 97
[2018-06-26] MEDS: Levothyroxine 75 MCG Tablet PO SCH (06:08)
[2018-06-26] MEDS: Escitalopram 10 MG Tablet PO SCH (09:51)
[2018-06-26] MEDS: Lactobacillus Acidophilus/L. Spores Tablet PO SCH (09:51)
[2018-06-26 10:28] VITALS: BP 139/83; RESP 19; TEMP 97
--- NOTE | 2018-06-26 10:36 | P.PNIM ---
Subjective Interval history: Follow-up abdominal wound abscess. Patient seen and examined, much improved today. Denies any acute events overnight. No reports of any pain. Abdominal area with improving erythema, area with mild TM colored drainage. No fevers overnight. Abdominal and sensitivity noted. Will discharge home today. Physical Exam Vital signs: Vital Signs 06/25/18 12:00 06/25/18 16:00 06/25/18 20:00 Temperature 97.7 F 97.1 F L 96.5 F L Pulse Rate 87 90 85 Respiratory Rate 19 18 Blood Pressure 147/80 H 136/72 133/62 Pulse Oximetry 98 99 98 06/26/18 00:00 06/26/18 08:00 Temperature 96.3 F L 97.0 F L Pulse Rate 89 89 Respiratory Rate 18 19 Blood Pressure 114/55 L 139/83 Pulse Oximetry 97 97 Intake & Output 06/25/18 06/26/18 06/26/18 18:59 06:59 18:59 Intake Total 720 / 720 715 / 715 240 / 240 Output Total 701 / 701 300 / 300 Balance 715 / 715 -60 / -60 Intake: IV 715 / 715 Vancomycin Inj 1,500 MG In NS 515 / 515 Inj 500 ML @ 250 mls/hr IV.SIG Q18H LEE Rx#:[id number] Rocephin Inj 1,000 MG In NS Inj 200 / 200 100 ML @ 200 mls/hr IV.SIG Q24H LEE Rx#:[id number] Oral 720 / 720 240 / 240 Output: Urine 700 / 700 300 / 300 Stool Other: Date of Last Bowel Movement 06/25/18 06/25/18 Narrative: GENERAL: Well-developed, well-nourished, in no acute distress. alert and orientated HEENT: Head is normocephalic without any lesions or masses noted. Facial features are symmetric. Eyes: Pupils equal round reactive to light. Extraocular muscles are intact. Conjunctivae were clear. Oropharyngeal: Pharynx without any erythema edema. Tongue is midline without deviation. Buccal mucosa is moist without any masses or lesions NECK: Supple without any masses. Trachea midline no deviation. No JVD, no bruits are appreciated CARDIAC: Regular rhythm, regular rate. S1/S2 are heard. No murmurs gallops or rubs. LUNGS: Clear to auscultation bilaterally. No wheeze, rhonchi or rales. No use of accessory muscles on inspiration or expiration. ABDOMEN: Soft, nontender. Nondistended. Bowel sounds heard in all 4 quadrants. No organomegaly or masses. Negative rebound, negative guarding EXTREMITIES: No edema, pulses are equal bilaterally. No cyanosis or clubbing NEUROLOGY: Mood and affect appear appropriate. Cranial nerves II through XII grossly intact. Muscle strength 5/5 in upper and lower extremities bilaterally. Deep tendon reflexes are 2+ in upper and lower extremities bilaterally. SKIN: Erythematous area on her right mid abdomen improving compared to yesterday , was previously measured at approximately 4 cm x 9 cm now has improved less than 3cm x 3cm area. Erythema has improved, with pink surrounding area of wound. Mild serous fluid noted. Area was previously marked and the cellulitis has not extended beyond the marked area but has improved significantly. Results - Labs CBC & Chem 7: 06/25/18 06:03 06/25/18 06:03 Assessment and Plan - Assessment (1) Cellulitis Code(s): L03.90 - Cellulitis, unspecified Status: Acute - Plan This is a 57-year-old female patient with: Abdominal wall cellulitis, failing outpatient management -Patient did take 3 days worth of Bactrim without any significant improvement -Patient continued on Rocephin and vancomycin with pharmacy consult. -[place] as needed for pain control -Wound culture reviewed and sensitivity noted. With significant improvement overnight of erythema and size of wound. -DC home on Clindamycin. Hypothyroidism -Continue home medications DVT prevention -Sequential compression devices DC home. Follow up PCP. Activity as tolerated. Heart healthy diet.
[2018-06-26] MEDS ORDERED: Pharmacy Ordered Lab Info OTHER ONE (13:45)
== END 2018-06-26 13:10 | disposition home or self-care (01) ==
LOC: NEDDLT 10:16 → PH3 18:44
PROVIDERS: ADMIT Hospitalist; ATTEND Hospitalist